=== PATIENT | male | born 1965 | race Caucasian/White ===

== ENCOUNTER → 2020-01-05 | Outpatient (CLI) | payer OTHER ==
--- NOTE | 2020-01-05 13:58 | Diagnostic Imaging Report ---
MRI of the left shoulder without contrast. History: Shoulder pain. Strain. Fall. Decreased range of motion. Pain not responding to conservative management. Comparison: None Technique: Coronal PD FS, sagital PD FS, and axial PD and PD FS. Findings: Rotator cuff: Rotator cuff tendinosis with midsubstance degeneration and full-thickness tear involving the anterior fibers of the supraspinatus tendons at the humeral insertion site. Minimal retraction of the torn fibers and mild supraspinatus and infraspinatus muscle atrophy. Additionally, there is subscapularis tendinosis. The teres minor tendon is intact. Osseous acromion complex: Type II acromion with mild lateral downsloping. Moderate degenerative arthrosis at the acromioclavicular joint with undersurface spurring and narrowing of the supraspinatus tendon outlet. Mild subacromial/subdeltoid bursitis. Glenohumeral joint: Degeneration and fraying of the labrum. The articular cartilage surfaces are thinned. The humeral head is well-seated in the glenoid fossa. Small effusion and mild synovitis in the rotator interval and subcoracoid space. Biceps tendon: Intra-articular biceps tendinosis with fraying at the biceps anchor. Other findings: Negative for muscle herniation or osseous fracture. Impression: Rotator cuff tendinosis with midsubstance degeneration and full-thickness tear involving the anterior fibers of the supraspinatus tendons at the humeral insertion site. Minimal retraction of the torn fibers and mild supraspinatus and infraspinatus muscle atrophy. Moderate degenerative arthrosis at the acromioclavicular joint with undersurface spurring and narrowing of the supraspinatus tendon outlet. Mild subacromial/subdeltoid bursitis. Intra-articular biceps tendinosis with fraying at the biceps anchor. Signed by: Dr. Barron Prasad M.D. on 01/05/2020 1:54 PM
== END ==
LOC: MRI 12:46
PROVIDERS: ATTEND Family Medicine
DX: S46.912D Strain of unspecified muscle, fascia and tendon at shoulder and upper arm level, left arm, subsequent encounter (principal)